=== PATIENT | female | born 1965 | race Caucasian/White ===

== ENCOUNTER 2016-11-09 17:00 | Inpatient (IN) | payer BC ==
[2016-11-10] MEDS ORDERED: Promethazine HCl 25 MG/ML VIAL IM PRN (21:50)
[2016-11-10] MEDS ORDERED: Promethazine HCl 25 MG/ML VIAL SLOW IVP PRN (21:50)
[2016-11-10] MEDS ORDERED: Ondansetron HCl/PF 4 MG/2 ML Vial IVP PRN (21:50)
[2016-11-15] MEDS ORDERED: Bupivacaine HCl 0.5%/Epinephrine 1:200,000/PF 30 ml Vial ONE (06:45)
[2016-11-15] MEDS ORDERED: Promethazine HCl 25 MG/ML VIAL ONE (07:06)
[2016-11-15] MEDS ORDERED: Fentanyl 100 MCG/2 ML VIAL ONE (07:06)
[2016-11-15] MEDS ORDERED: Midazolam HCl 2 mg/2 ml Vial ONE (07:06)
[2016-11-15] MEDS ORDERED: Scopolamine 1.5 mg/72 hour Patch ONE (07:10)
[2016-11-15] MEDS ORDERED: Heparin 5,000 UNITS/ML VIAL ONE (07:10)
[2016-11-15] MEDS ORDERED: Sodium Chloride 0.9% 100 ML ONE (07:10)
[2016-11-15] MEDS ORDERED: Ketorolac Tromethamine 30 MG/ML VIAL ONE (07:10)
[2016-11-15] MEDS ORDERED: Vecuronium 10 MG VIAL ONE (07:32)
[2016-11-15] MEDS ORDERED: Labetalol HCl 100 MG/20 ML SYR ONE (07:32)
[2016-11-15] MEDS ORDERED: Ondansetron HCl/PF 4 MG/2 ML Vial ONE (07:32)
[2016-11-15] MEDS ORDERED: Propofol 200 MG/20 ML VIAL ONE (07:32)
[2016-11-15] MEDS ORDERED: Lidocaine 1% PF 5 ML VIAL ONE (07:32)
[2016-11-15] MEDS ORDERED: Glycopyrrolate 0.2 MG/ML 5 ML SYRINGE ONE (07:32)
[2016-11-15] MEDS ORDERED: Rocuronium Bromide 50 MG/5 ML VIAL ONE (08:42)
[2016-11-15] MEDS ORDERED: HYDROmorphone 2 MG/ML VIAL SLOW IVP PRN (10:40)
[2016-11-15] MEDS ORDERED: Promethazine HCl 25 MG/ML VIAL SLOW IVP PRN (10:40)
[2016-11-15] MEDS ORDERED: Morphine Sulfate 2 MG/ML SYRINGE SLOW IVP PRN (10:40)
[2016-11-15] MEDS ORDERED: Meperidine HCl/PF 25 MG/ML VIAL SLOW IVP PRN (10:40)
[2016-11-15] MEDS ORDERED: Ondansetron HCl/PF 4 MG/2 ML Vial IVP PRN ×3 (10:40→13:46)
[2016-11-15] MEDS ORDERED: diphenhydrAMINE HCl 50 MG/ML 1 ML VIAL IVP PRN ×2 (10:47→13:46)
[2016-11-15] MEDS ORDERED: Zolpidem Tartrate 5 MG TAB PO PRN (10:47)
[2016-11-15] MEDS ORDERED: Naloxone HCl 0.4 mg/ml Vial IV PRN (10:47)
[2016-11-15] MEDS ORDERED: Promethazine HCl 25 MG/ML VIAL IM PRN ×2 (10:47→13:46)
[2016-11-15] MEDS ORDERED: Ketorolac Tromethamine 30 MG/ML VIAL IVP PRN (10:47)
[2016-11-15] MEDS ORDERED: diphenhydrAMINE HCl 25 MG CAP PO PRN (10:47)
[2016-11-15] MEDS ORDERED: Fentanyl 5000 MCG/250 ML CADD IVPB PRN (10:47)
[2016-11-15] MEDS ORDERED: diphenhydrAMINE HCl 50 MG/ML 1 ML VIAL IM PRN (10:47)
[2016-11-15] MEDS ORDERED: SUGAMMADEX SODIUM 500 MG/5 ML VIAL ONE (10:57)
[2016-11-15] MEDS ORDERED: Communication Order-Pharmacy FS SCH (11:00)
[2016-11-15 12:24] LABS: Oxyhemoglobin 94.8 % (94.0-97.0); Sodium 142 mmol/L (135-148)
[2016-11-15 12:25] LABS: Mode BIPAP; Pressure Support 14 cmH2O; Vent NO
[2016-11-15] MEDS ORDERED: Dextrose 50% Abboject 50 ML SYRINGE SLOW IVP PRN (13:46)
[2016-11-15] MEDS ORDERED: Dextrose 5% in Water 1,000 ML IV PRN (13:46)
[2016-11-15] MEDS ORDERED: Hydrocodone-Acetamin 15 ML UDCUP PO PRN (13:46)
[2016-11-15] MEDS ORDERED: Insulin Regular 300 UNITS/3 ML VIAL SC PRN (13:46)
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
[2016-11-15 16:34] VITALS: BMI 54.8
[2016-11-15] MEDS: Ketorolac Tromethamine 30 MG/ML VIAL IVP SCH ×2 (17:01→21:34)
[2016-11-15] MEDS: 1/2 NS w/KCL 20 mEq 1,000 ML IV SCH ×2 (17:32→22:37)
[2016-11-15] MEDS ORDERED: Enoxaparin Sodium 40 MG/0.4 ML SYRINGE SC SCH (21:00)
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
[2016-11-16] MEDS: Ketorolac Tromethamine 30 MG/ML VIAL IVP SCH ×3 (02:02→15:32)
[2016-11-16] MEDS: 1/2 NS w/KCL 20 mEq 1,000 ML IV SCH (04:32)
[2016-11-16 04:57] LABS: #Basophils 0.1 thou/uL (0.0-0.2); #Eosinphils 0.1 thou/uL (0.0-0.7); #Lymphocytes 2.2 thou/uL (1.20-3.40); #Neutrophils 12.3 thou/uL (1.40-6.50); %Basophils 0.3 % (0.0-1.0); %Eosinophils 0.3 % (0.0-10.0); %Monocytes 6.6 % (0.0-10.0); Hematocrit 33.9 % (36.0-47.0); Mean Platelet Volume 7.9 fL (7.4-10.4); White Blood Cell (WBC) Count 15.6 thou/uL (4.8-10.8)
[2016-11-16 05:18] LABS: Anion Gap 14 mmol/L (10-20); BUN (Urea Nitrogen) 18 mg/dL (9.8-20.1); Calc. Creatinine Clearance 142 mL/min (70-130); Calcium 8.7 mg/dL (7.8-10.44); Carbon Dioxide 23 mmol/L (22-29); Chloride 109 mmol/L (98-107); Estimated GFR-MDRD 62
[2016-11-16] MEDS ORDERED: Pantoprazole 40 MG VIAL IVP SCH (09:00)
--- NOTE | 2016-11-16 09:19 | PRG ---
DATE OF SERVICE: 11/16/2016 Ms. Manning is doing well today. She had no acute complaints. She did not require BiPAP after coming up to the [facility] last night. PHYSICAL EXAMINATION: HEENT: Unremarkable. NECK: No JVD. CHEST: Clear. CARDIAC: S1, S2 regular. ABDOMEN: Slightly distended. EXTREMITIES: No edema. ASSESSMENT: 1. Status post gastric bypass surgery. 2. Sleep apnea. 3. Acute respiratory failure which has resolved. PLAN: She is going home today. I have given her the name of a physician in [place]. She can follow up with me with a sleep study if she wishes. I would be glad to see her as an outpatient basis if she wants to continue following up over here.
--- NOTE | 2016-11-16 10:18 | RAD ---
EXAM: FIFTEEN ML SWALLOW: HISTORY: Status post bariatric surgery. Postop9 day 1. COMPARISON: None. EXPOSURE: 0.7 minutes. 51.991 uGy*\S\cm2. FINDINGS: The patient was administered 15 cc of Gastrografin. Contrast passes without any difficulty into the residual stomach. Postprocedure images demonstrate contrast in the proximal small bowel loops. IMPRESSION: No leak or extravasation. POS: HENRRY
[2016-11-16 12:06] VITALS: BP 128/62; TEMP 98.6
[2016-11-16] MEDS ORDERED: Gadobenate Dimeglumine 529 MG/1 ML (20ML VIAL) ONE (14:22)
== END 2016-11-16 16:02 | disposition home or self-care (01) | DRG 619 ==
LOC: SURG A 11-15 05:59 → IMCU/EMU 11-15 15:11
PROVIDERS: ADMIT Specialist; ATTEND Specialist
PROC: 0D164ZL Bypass Stomach to Transverse Colon, Percutaneous Endoscopic Approach (ICD-10-PCS; principal; 2016-11-15)
PROC: 5A09357 Assistance with Respiratory Ventilation, Less than 24 Consecutive Hours, Continuous Positive Airway Pressure (ICD-10-PCS; 2016-11-15)
DX: E66.01 Morbid (severe) obesity due to excess calories (principal); J95.821 Acute postprocedural respiratory failure; Z68.43 Body mass index [BMI] 50.0-59.9, adult; G47.30 Sleep apnea, unspecified; Z85.828 Personal history of other malignant neoplasm of skin; I10 Essential (primary) hypertension; E11.9 Type 2 diabetes mellitus without complications; G89.29 Other chronic pain; Z90.49 Acquired absence of other specified parts of digestive tract; F17.210 Nicotine dependence, cigarettes, uncomplicated
CPT/HCPCS: 36415; 36416; 74241; 80048; 82805; 85025; 94660; 94760; A9579; J0131; J0670; J0694; J1170; J1644; J1885; J2001; J2250; J2405; J2550; J2704; J3010; J7050

== ENCOUNTER 2016-11-10 16:30 | Observation (INO) | payer BC, OTHER ==
[~2016-11-10 16:30] MED LIST: Iopamidol 370 76% 100 ML VIAL ONE
[2016-11-10] MEDS ORDERED: Fentanyl 100 MCG/2 ML VIAL ONE ×3 (16:50→21:51)
[2016-11-10] MEDS ORDERED: Ondansetron HCl/PF 4 MG/2 ML Vial ONE ×2 (16:50→21:23)
[2016-11-10 18:24] LABS: Hematocrit 42.5 % (36.0-47.0); Red Blood Cell (RBC) Count 4.43 mill/uL (4.20-5.40); White Blood Cell (WBC) Count 24.8 thou/uL (4.8-10.8)
[2016-11-10 18:29] LABS: Anion Gap 16 mmol/L (10-20); BUN (Urea Nitrogen) 22 mg/dL (9.8-20.1); Calc. Creatinine Clearance 0 mL/min (70-130); Calcium 9.5 mg/dL (7.8-10.44); Carbon Dioxide 20 mmol/L (22-29); Chloride 103 mmol/L (98-107); Estimated GFR-MDRD 59
[2016-11-10 18:37] LABS: Band 13 % (5-11); Neutrophil 74 % (42-75); Toxic Granulation SLIGHT
[2016-11-10] MEDS ORDERED: Lidocaine 1% w/Epinephrine 1:200K 30 ML VIAL ONE (18:57)
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
[2016-11-10] MEDS ORDERED: Diprivan 20 ML ONE (19:53)
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
[2016-11-10] MEDS ORDERED: HYDROcodone/Acetaminophen 7.5/325 mg Tablet PO PRN (21:07)
[2016-11-10] MEDS ORDERED: Dextrose 5% in Water 1,000 ML IV PRN (21:08)
[2016-11-10] MEDS ORDERED: Dextrose 50% Abboject 50 ML SYRINGE SLOW IVP PRN (21:08)
[2016-11-10] MEDS ORDERED: Glycopyrrolate 0.2 MG/ML 5 ML SYRINGE ONE (21:23)
[2016-11-10] MEDS ORDERED: Lidocaine 1% PF 5 ML VIAL ONE (21:23)
[2016-11-10] MEDS ORDERED: Propofol 200 MG/20 ML VIAL ONE (21:23)
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
[2016-11-11 00:17] VITALS: BMI 53.4
[2016-11-11] MEDS: Acetaminophen 500 MG TAB PO SCH ×5 (00:52→23:26)
[2016-11-11] MEDS: traMADol HCl 50 MG TAB PO SCH ×5 (00:52→23:27)
[2016-11-11] MEDS: Ibuprofen 800 MG TAB PO SCH ×4 (00:52→21:15)
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
[2016-11-11 07:18] LABS: Anion Gap 18 mmol/L (10-20); BUN (Urea Nitrogen) 20 mg/dL (9.8-20.1); Calc. Creatinine Clearance 148 mL/min (70-130); Calcium 8.9 mg/dL (7.8-10.44); Carbon Dioxide 21 mmol/L (22-29); Chloride 104 mmol/L (98-107); Estimated GFR-MDRD 66; Magnesium 1.6 mg/dL (1.6-2.6); Phosphorus 4.3 mg/dL (2.3-4.7)
--- NOTE | 2016-11-11 08:30 | RAD ---
TWO VIEWS RIGHT FOOT: HISTORY: Closed reduction. FINDINGS: AP and lateral views of the right foot are obtained. Images demonstrate status post reduction of the talonavicular dislocation. No other significant abn ormality seen. IMPRESSION: Status post reduction of the talonavicular dislocation. POS: [facility]
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
[2016-11-11] MEDS: HumaLOG 300 UNITS/3 ML VIAL SC PRN ×2 (18:26→22:01)
[2016-11-11] MEDS ORDERED: Famotidine 20 MG TAB PO SCH (22:30)
[2016-11-12] MEDS: Ibuprofen 800 MG TAB PO SCH ×3 (06:23→21:00)
[2016-11-12] MEDS: traMADol HCl 50 MG TAB PO SCH ×3 (06:24→17:11)
[2016-11-12] MEDS: Acetaminophen 500 MG TAB PO SCH ×3 (06:24→17:11)
[2016-11-12] MEDS: HumaLOG 300 UNITS/3 ML VIAL SC PRN ×2 (06:26→20:48)
[2016-11-12] MEDS: Famotidine 20 MG TAB PO SCH ×2 (08:16→20:47)
[2016-11-12] MEDS: Magnesium Sulfate 4 GM in Sodium Chloride 0.9% 250 ML 250 ML IVPB SCH ×2 (11:57→12:28)
[2016-11-12] MEDS ORDERED: Magnesium Oxide 400 MG TAB PO SCH (14:00)
--- NOTE | 2016-11-12 17:53 | PRG ---
DATE OF SERVICE: 11/12/2016 SUBJECTIVE: Patient is postop day #2 from a right talonavicular dislocation where she underwent rivera sed reduction in the operating room. Patient tolerated this procedure well. Yesterday, she had beg un work with physical and occupational therapy and this morning, she has no complaints. She is stat ing that her pain is controlled and she is tolerating a diet. OBJECTIVE: VITAL SIGNS: Temperature is 98.0, heart rate 90, blood pressure 146/86, respirations 16, oxygen sat uration is 95% on room air. HEENT: Unremarkable. LUNGS: Clear to auscultation bilaterally with good inspiratory and expiratory effort. ABDOMEN: Soft, flat, nontender. EXTREMITIES: Neurovascularly intact x4. Her postop dressing is clean, dry, and intact. ASSESSMENT AND PLAN: Status post closed reduction of talonavicular fracture dislocation. Plan will be to continue physical and occupational therapy, pain management and await rehab evaluation.
[2016-11-13] MEDS: Acetaminophen 500 MG TAB PO SCH ×5 (00:44→23:33)
[2016-11-13] MEDS: traMADol HCl 50 MG TAB PO SCH ×5 (00:44→23:33)
[2016-11-13] MEDS: Ibuprofen 800 MG TAB PO SCH ×3 (05:57→20:22)
[2016-11-13] MEDS: HumaLOG 300 UNITS/3 ML VIAL SC PRN (06:25)
[2016-11-13] MEDS: Famotidine 20 MG TAB PO SCH ×2 (08:53→20:22)
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
[2016-11-14] MEDS: Acetaminophen 500 MG TAB PO SCH ×2 (05:53→11:27)
[2016-11-14] MEDS: Ibuprofen 800 MG TAB PO SCH ×2 (05:54→14:12)
[2016-11-14] MEDS: traMADol HCl 50 MG TAB PO SCH ×2 (05:56→08:04)
[2016-11-14] MEDS: Famotidine 20 MG TAB PO SCH (08:02)
[2016-11-14 12:27] VITALS: BP 130/87; TEMP 99.1
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
== END 2016-11-14 17:45 | disposition home or self-care (01) ==
LOC: ERS 16:30 → SJJU 22:43
PROVIDERS: ADMIT Orthopaedic Surgery; ATTEND Orthopaedic Surgery
PROC: 0SSFXZZ Reposition Right Ankle Joint, External Approach (ICD-10-PCS; principal; 2016-11-14)
DX: S93.04XA Dislocation of right ankle joint, initial encounter (principal); G89.11 Acute pain due to trauma; S30.1XXA Contusion of abdominal wall, initial encounter; S81.812A Laceration without foreign body, left lower leg, initial encounter; E11.9 Type 2 diabetes mellitus without complications; I10 Essential (primary) hypertension; E66.9 Obesity, unspecified; F17.210 Nicotine dependence, cigarettes, uncomplicated; V43.52XA Car driver injured in collision with other type car in traffic accident, initial encounter; Z68.43 Body mass index [BMI] 50.0-59.9, adult; Z79.84 Long term (current) use of oral hypoglycemic drugs; Z79.82 Long term (current) use of aspirin; Z79.01 Long term (current) use of anticoagulants; Z79.899 Other long term (current) drug therapy
CPT/HCPCS: 12002; 36415; 36416; 70450; 71010; 71260; 72125; 74177; 76001; 80048; 83735; 84100; 85025; 94640; 96361; 96374; 99156; 99157; G0378; G0390; G8978-GP-CK; G8979-GP-CI; J2001; J2405; J2704; J3010; J3475; J7050; J7620